=== PATIENT | female | born 1970 | race Caucasian/White ===

== ENCOUNTER 2016-04-23 10:15 | Outpatient (CLI) | payer OTHER ==
--- NOTE | 2016-04-23 13:48 | OP Clinic Progress Note ---
REFERRING PHYSICIAN: Dr. Jaime Bustos Dear Dr. Bustos: REASON FOR VISIT: I had the pleasure of seeing Meme Ayers in follow up. As you know, I am treating her for seropositive rheumatoid arthritis. She also has a positive SSA antibody. She has noted some improvement on Plaquenil. When she missed it due to gastroenteritis, she felt worse. On today's visit, she complains of pain in her hips and she points to the SI joints and pain in her knees, worse with walking. She has not managed to lose any weight. She is requesting phentermine. I gave her reference to a diet which her and her boyfriend are planning to start. Morning stiffness remains less than 30 minutes. She does complain of some swelling at the ankles. PAST MEDICAL HISTORY: 1. Obesity. 2. Hypertension. 3. Hypothyroidism. 4. Two C-sections. 5. Hysterectomy. 6. Breast reduction. SOCIAL HISTORY AND FAMILY HISTORY: Social history and family history are unchanged. REVIEW OF SYSTEMS: No fevers, chills, sweats, chest pain, shortness of breath, cough, or wheezing. PHYSICAL EXAMINATION: VITAL SIGNS: BP: 148/90, R: 18, heart rate 80, T: 97.5. HEENT: Grossly unremarkable. LUNGS: Clear. HEART: Regular rhythm. ABDOMEN: Soft. VASCULAR: No edema or cyanosis. PERIPHERAL JOINTS: No synovitis at the DIPs, PIPs, MCPs, wrists, elbows, or shoulders. The knees are difficult to examine due to the patient's obesity. IMPRESSION: 1. Seropositive rheumatoid arthritis, seems to be responding. I will recheck a CRP and a sedimentation rate today. If she fails Plaquenil, we will contemplate methotrexate. 2. Obesity. We again discussed the need for weight loss and its association with chronic back pain, osteoarthritis, and reducing cardiovascular risks. I told her I will not prescribe phentermine. Thank you very much. Best regards, cc: Dr. Jaime JOHNSON
== END 2016-04-23 10:16 ==
LOC: RHEU 10:15
PROVIDERS: ATTEND Internal Medicine
DX: M05.79 Rheumatoid arthritis with rheumatoid factor of multiple sites without organ or systems involvement (principal)
CPT/HCPCS: 36415; 84443; 85651; 86140; 99213

== ENCOUNTER 2016-07-23 11:30 | Outpatient (CLI) | payer OTHER ==
--- NOTE | 2016-07-26 14:45 | OP Clinic Progress Note ---
REASON FOR VISIT: Meme Ayers returns for follow up of seropositive rheumatoid arthritis and a positive SSA-antibody. She is feeling well on Plaquenil with no significant joint swelling, warmth, tenderness, or pain. Most of her pain is in the hips and knees. She has been doing some exercise and feels somewhat better. She has lost around 10 pounds. PAST MEDICAL HISTORY: 1. Obesity. 2. Hypertension. 3. Hypothyroidism. 4. Two C-sections. 5. Hysterectomy. 6. Breast reduction. 7. Rheumatoid arthritis. PRESENT MEDICATIONS: 1. Plaquenil 200 mg twice a day. 2. Levothyroxine. REVIEW OF SYSTEMS: No fevers, chills, sweats, chest pain, shortness of breath, cough, or wheezing. PHYSICAL EXAMINATION: GENERAL APPEARANCE: On exam, she looks well. VITAL SIGNS: WT: 370 pounds. HT: 5 feet 4 inches. BP: 147/90, heart rate 76, R: 12, T: 97. HEENT: Grossly unremarkable. LUNGS: Clear. HEART: Regular rhythm. ABDOMEN: Soft. VASCULAR: No edema or cyanosis. PERIPHERAL JOINTS: No synovitis at the DIPs, PIPs, MCPs, wrists, elbows, shoulders, hips, knees, ankles, and feet. IMPRESSION: Seropositive rheumatoid arthritis, doing well on Plaquenil. PLAN: I gave her 6 months of refills. I will see her back in 6 months. No other changes at this time. Thank you very much. cc: Dr. Jaime JOHNSON
== END 2016-07-23 11:32 ==
LOC: RHEU 11:30
PROVIDERS: ATTEND Internal Medicine
DX: M05.79 Rheumatoid arthritis with rheumatoid factor of multiple sites without organ or systems involvement (principal)
CPT/HCPCS: 99213

== ENCOUNTER 2017-01-28 07:51 | Outpatient (CLI) | payer OTHER ==
[2017-01-28 08:15] LABS: BASOPHILS % 0.4 (0.0-1.5); EOSINOPHILS % 2.2 % (0.0-6.8); MEAN CORPUSCULAR HEMOGLOBIN 30.3 pg (28.0-34.0); MEAN CORPUSCULAR VOLUME 92.8 fl (80.0-100.0); MONOCYTES % 4.3 % (0.0-11.0); NEUTROPHILS # 4.7 # k/uL (1.4-7.7)
[2017-01-28 08:48] LABS: eGFR (African) > 60; eGFR (Non-African) > 60
[2017-01-28 17:51] LABS: T3 TOTAL 108.2 ng/dL (80.0-200.0)
== END 2017-01-28 07:52 ==
LOC: LAB 07:51
PROVIDERS: ATTEND Physician Assistant
DX: R53.83 Other fatigue (principal); Z00.00 Encounter for general adult medical examination without abnormal findings; E03.9 Hypothyroidism, unspecified
CPT/HCPCS: 36415; 80053; 80061; 84439; 84443; 84480; 85025

== ENCOUNTER 2017-02-01 13:39 | Outpatient (CLI) | payer OTHER ==
--- NOTE | 2017-02-01 15:26 | Diagnostic Imaging Report ---
KRISTAL HINOJOSA [facility] [address] [facility] [address] [address] Report Submission Date: Feb 01, 2017 2:33:20 PM GLOVE OPERATOR Patient Study Name: LIAT LEA Date: Feb 01, 2017 2:05:45 PM GLOVE OPERATOR Modality Type: US Gender: F Description: US THYROID SOFT TISS HEAD/NCK : 68 Institution: [facility] Physician: KRISTAL HINOJOSA Examination: Ultrasound thyroid History: Thyroid swelling. Comparison exams: None available Findings: Right thyroid lobe measures 5.0 x 1.8 x 2.0 cm. Left thyroid lobe measures 5.1 x 1.6 x 2.0 cm. Normal echogenicity bilaterally. Focal echogenic structure near the inferior margin of the right thyroid gland measuring 6 mm maximally. Impression: Echogenic nodule near the inferior margin of the right thyroid lobe - uncertain if this is intra thyroid or external to the thyroid gland. Correlate with any laboratory values. Follow as clinically warranted. Electronically signed on Feb 01, 2017 2:33:20 PM GLOVE OPERATOR by: Deepak JOHNSON
== END 2017-02-01 13:40 ==
LOC: RAD 13:39
PROVIDERS: ATTEND Physician Assistant
DX: E07.9 Disorder of thyroid, unspecified (principal)
CPT/HCPCS: 76536

== ENCOUNTER 2017-02-02 10:16 | Outpatient (CLI) | payer OTHER ==
--- NOTE | 2017-02-03 12:05 | OP Clinic Progress Note ---
REASON FOR VISIT: Meme is a 46-year-old female with a variety of head and neck issues. One is a thyroid ultrasound that had at maximum a 4 mm but generally a less sized nodule in her thyroid. In discussing this, it is not at all suspicious. There is no suggestion in the report and my general recommendation regarding a biopsy would tend not to do that at this point. It might be left alone. The patient does have some general concern in this regard. My recommendation as far as the nodule in the thyroid is to have a repeat ultrasound in a year. Also note that the thyroid generally is of a normal size. It is not goitrous and I do not believe that the thyroid itself contributes in any way to her airway restriction. Regarding airway restriction, she feels some shortness of breath at different times. She is overall fairly self-aware. Some of her throat symptoms she recognizes as reflux and simply taking 2 Tums recently calms significantly some of her throat symptoms. She describes tightness and a fullness in her throat. By palpation, the thyroid is not tender. There is no gross palpable mass or nodule that is abnormal in her neck, albeit some reduced confidence limits in being able to feel structures in her neck secondary to her obesity. I used a flexible fiberoptic laryngoscope. She does have some turbinate hypertrophy and rhinitis that contributes to some degree of her airway restriction. The tongue base is somewhat posterior. The vocal cords and the rest of the larynx is entirely normal. Vocal cords abduct and adduct well. There are no masses. I would note that Meme was at least 3 times tearful during the conversation, just at on the onset mentioning the of her father in November and her brother in December. She also noted some of her symptoms of swelling under the neck and shortness of breath and fullness surrounding the times of the deaths in her family. She notes that she has had anxiety in the past and she has taken a medication. She is not quite sure which one that is. PLAN: I offered her a trial on a medication that may or may not ameliorate some of her anxiety or symptoms. I offered a low dose of Elavil at 10 mg a day p.r.n. anxiety. I pointed out with this medication, she should pay attention and at her next meeting with Dr. Licea, make a comment as to whether the Elavil at this dose was somewhat helpful, not at all helpful, or somewhat bothersome, but at least be aware in this regard. Again, regarding the small nodule in the thyroid that the maximum size would be just barely 6 mm and doing an ultrasound in a year. Meme notes that she is well aware of her being overweight and that she is also aware that she eats for anxiety reduction. She is trying to make some changes in this regard. I feel that overall even though she has a difficult time acting on some of the issues that are deleterious to her, she is fairly self-aware. Meme may return at any time on an p.r.n. basis, but she will otherwise return to the care of Dr. Licea. cc: Dr. Lissett JOHNSON
== END 2017-02-02 10:17 ==
LOC: ENT 10:16
PROVIDERS: ATTEND Otolaryngology
DX: E04.1 Nontoxic single thyroid nodule (principal); F41.9 Anxiety disorder, unspecified
CPT/HCPCS: 31575; 99213

== ENCOUNTER 2017-08-19 08:00 | Outpatient (CLI) | payer OTHER ==
--- NOTE | 2017-08-25 07:59 | OP Clinic Progress Note ---
REASON FOR VISIT: Meme Ayers returns for follow up on her seropositive rheumatoid arthritis and positive SSA antibody. She is not doing well. She is having pain and throbbing in her arms. She is having more difficulty walking. She has pain in her feet and her left knee. Otherwise, she has not noted any new deformities. Obesity, she has not managed to lose any more significant weight. Hypothyroidism, she is back on her levothyroxine. She has not had her TSH checked in quite a while. Anxiety disorder, she needs to contact her primary physician. PAST MEDICAL AND SURGICAL HISTORY: 1. Hypertension. 2. Hysterectomy. 3. Breast reduction. PRESENT MEDICATIONS: 1. Plaquenil 200 mg twice a day. 2. Meloxicam 15 mg daily. 3. Levothyroxine 25 mcg daily. 4. Amitriptyline. REVIEW OF SYSTEMS: No fevers, chills, or sweats. Continued fatigue. No chest pain, shortness of breath, cough or wheezing, nausea or vomiting. PHYSICAL EXAMINATION: VITAL SIGNS: Weight: 374 pounds. Height: 5 feet 4 inches. T: 96.2, R: 20 , heart rate 76, BP: 140/80. HEENT: Unremarkable. LUNGS: Clear with no crackles or wheezing. HEART: Regular rate and rhythm. ABDOMEN: Soft. VASCULAR: No edema or cyanosis. JOINTS: DIPs, PIPs, MCPs, and wrists are unremarkable. Elbows and shoulders are unremarkable. Both knees are tender. I cannot ascertain whether she has an effusion. Both ankles are tender. MTPs are unremarkable. IMPRESSION: Seropositive rheumatoid arthritis, doing poorly. PLAN: 1. I am stopping her meloxicam. 2. I am putting her on prednisone 5 mg twice a day for the next 4 weeks. We will re-evaluate her at that time. 3. In the meantime, we will update a TSH, CBC, CMP, sedimentation rate, CRP and we will consider stopping Plaquenil and instituting methotrexate if appropriate. Thank you very much. cc: Dr. Jaime JOHNSON
== END 2017-08-19 09:07 ==
LOC: RHEU 08:00
PROVIDERS: ATTEND Internal Medicine
DX: M05.9 Rheumatoid arthritis with rheumatoid factor, unspecified (principal)
CPT/HCPCS: 99213; 99214

== ENCOUNTER 2017-08-25 16:02 | Outpatient (CLI) | payer OTHER ==
[2017-08-25 16:56] LABS: MEAN CORPUSCULAR HEMOGLOBIN 30.7 pg (28.0-34.0); MEAN CORPUSCULAR VOLUME 90.8 fl (80.0-100.0)
[2017-08-25 16:57] LABS: BASOPHILS % 0.5 (0.0-1.5); EOSINOPHILS % 3.9 % (0.0-6.8); MONOCYTES % 4.3 % (0.0-11.0); NEUTROPHILS # 4.8 # k/uL (1.4-7.7)
[2017-08-25 17:06] LABS: eGFR (African) > 60; eGFR (Non-African) > 60
== END 2017-08-25 16:15 ==
LOC: LAB 16:02
PROVIDERS: ATTEND Internal Medicine
DX: M05.79 Rheumatoid arthritis with rheumatoid factor of multiple sites without organ or systems involvement (principal); E78.5 Hyperlipidemia, unspecified
CPT/HCPCS: 36415; 80053; 84443; 85025; 85651; 86140

== ENCOUNTER 2017-09-23 08:32 | Outpatient (CLI) | payer OTHER ==
--- NOTE | 2017-09-26 13:17 | OP Clinic Progress Note ---
REASON FOR VISIT: Meme Ayers returns for follow up of seropositive rheumatoid arthritis and a positive SSA antibody. At her last visit, I added prednisone 5 mg to her regimen and it made a huge difference. She has been feeling well with no joint pain. No stiffness. Maybe a little bit of residual pain in her feet. She has lost some weight. Other issues have been hypothyroidism and anxiety disorder. PAST MEDICAL HISTORY: 1. Hypertension. 2. Hysterectomy. 3. Breast reduction. 4. Hypothyroidism. PRESENT MEDICATIONS: 1. Plaquenil 200 mg twice a day. 2. Prednisone 5 mg twice a day. 3. Levothyroxine 25 mcg daily. 4. Amitriptyline. REVIEW OF SYSTEMS: No fevers, chills, sweats, chest pain, shortness of breath, cough, or wheezing. PHYSICAL EXAMINATION: VITAL SIGNS: Height: 5 feet 4 inches. Weight: 360 pounds, down from 374. T: 96.9, R: 20, heart rate 80, BP: 130/80. HEENT: Sclerae are anicteric. Conjunctivae are pink. No stomatitis or glossitis. LUNGS: Clear with no crackles or wheezing. HEART: Regular rate and rhythm. ABDOMEN: Soft. VASCULAR: No edema or cyanosis. PERIPHERAL JOINTS: DIPs, PIPs, MCPs, wrists, elbows, shoulders, hips, knees, ankles, and feet are nontender. The other thing she tells me is that her arms no longer fall asleep at night. LABORATORY: Her last lab reflected a sedimentation rate of 53. CRP was 0.55. TSH was 3.620. IMPRESSION: Seropositive rheumatoid arthritis, improved. PLAN: 1. Continue prednisone 5 mg twice a day. 2. Continue Plaquenil 200 mg twice a day. 3. I am instituting Arava 20 mg daily. I warned her about the possibility of diarrhea on this. 4. She is going to get labs done in 3 weeks. 5. I will see her back in 4 weeks. Thank you very much. cc: Dr. Lissett JOHNSON
== END 2017-09-23 12:35 ==
LOC: RHEU 08:32
PROVIDERS: ATTEND Internal Medicine
DX: M05.9 Rheumatoid arthritis with rheumatoid factor, unspecified (principal)
CPT/HCPCS: 99213; 99214

== ENCOUNTER 2017-10-20 10:52 | Outpatient (CLI) | payer OTHER ==
[2017-10-20 17:15] LABS: BASOPHILS % 0.5 (0.0-1.5); EOSINOPHILS % 0.5 % (0.0-6.8); MEAN CORPUSCULAR VOLUME 91.4 fl (80.0-100.0); MONOCYTES % 5.1 % (0.0-11.0); NEUTROPHILS # 6.3 # k/uL (1.4-7.7)
[2017-10-20 17:46] LABS: eGFR (African) > 60; eGFR (Non-African) > 60
== END 2017-10-20 10:53 ==
LOC: LAB 10:52
PROVIDERS: ATTEND Internal Medicine
DX: M05.79 Rheumatoid arthritis with rheumatoid factor of multiple sites without organ or systems involvement (principal)
CPT/HCPCS: 36415; 80053; 85025; 85651; 86140

== ENCOUNTER 2017-10-21 09:01 | Outpatient (CLI) | payer OTHER ==
--- NOTE | 2017-10-21 14:32 | OP Clinic Progress Note ---
REASON FOR VISIT: Meme Ayers returns for follow up on her seropositive rheumatoid arthritis and positive SSA antibody. She is feeling better. At her last visit, I instituted Arava 20 mg daily. She has tolerated it well with no nausea or diarrhea. She presently has no joint pain, stiffness, or swelling. She would like to get off the prednisone. She has lost about 10 pounds and would not like to weigh today. PAST MEDICAL HISTORY: 1. Hypertension. 2. Hysterectomy. 3. Breast reduction. 4. Hypothyroidism. 5. Anxiety disorder. PRESENT MEDICATIONS: 1. Plaquenil 200 mg twice a day. 2. Prednisone 5 mg twice a day. 3. Levothyroxine 25 mcg daily. 4. Amitriptyline. 5. Hydrochlorothiazide, dose unknown. 6. Arava 20 mg daily. REVIEW OF SYSTEMS: No fevers, chills, sweats, chest pain, shortness of breath, cough, wheezing, nausea, vomiting, or diarrhea. No rashes, numbness, or tingling of extremities. PHYSICAL EXAMINATION: VITAL SIGNS: Height: 5 feet 4 inches. T: 96.3, R: 20, Heart rate 80, BP: 147/91. HEENT: Sclerae are anicteric. Conjunctivae are pink. No stomatitis or glossitis. LUNGS: Clear. HEART: Regular rate and rhythm. ABDOMEN: Soft. VASCULAR: No edema or cyanosis. JOINTS: The DIPs, PIPs, MCPs, wrists, elbows, shoulders, hips, knees, ankles, and feet with no synovitis. LABORATORY: Labs from October 20, sedimentation rate was 47. Potassium was 3. Creatinine was normal. CRP was 0.39. TSH was 3.62 on August 25. IMPRESSION: 1. Seropositive rheumatoid arthritis, improved. 2. High risk drug. No evidence of toxicity. PLAN: 1. We are going to wean her off the prednisone by taking 5 mg daily for 2 weeks and then 2.5 mg daily for 2 weeks and then stop. 2. We discussed further weight loss modalities. 3. We will check her labs prior to her next visit in 3 months. cc: Dr. Lissett JOHNSON
== END 2017-10-21 09:02 ==
LOC: RHEU 09:01
PROVIDERS: ATTEND Internal Medicine
DX: M05.9 Rheumatoid arthritis with rheumatoid factor, unspecified (principal); Z79.899 Other long term (current) drug therapy; Z51.81 Encounter for therapeutic drug level monitoring
CPT/HCPCS: 99213; 99214

== ENCOUNTER 2018-01-05 16:34 | Outpatient (CLI) | payer OTHER ==
[2018-01-05 16:55] LABS: BASOPHILS % 0.3 (0.0-1.5); MEAN CORPUSCULAR HEMOGLOBIN 30.7 pg (28.0-34.0); MONOCYTES % 6.1 % (0.0-11.0)
[2018-01-05 16:56] LABS: NEUTROPHILS # 4.1 # k/uL (1.4-7.7)
[2018-01-05 17:12] LABS: eGFR (Non-African) > 60
--- NOTE | 2018-01-05 17:27 | Diagnostic Imaging Report ---
DEANNA NEIL [facility] [address] [facility] [address] [place], [place]. [address] Report Submission Date: Jan 05, 2018 5:07:00 PM CDT Patient Study Name: LIAT LEA Date: Jan 05, 2018 4:43:12 PM CDT Modality Type: DX Gender: F Description: CHEST : 68 Institution: [facility] Physician: DEANNA NEIL Examination: PA and lateral chest. History: Evaluate lung rodney. 47/F CXR - SOB x1 WK, AND COUGH PT DENIES CHANCES OF (Hx) Findings: PA and lateral views of the chest demonstrates a normal cardiac and mediastinal silhouette. No focal infiltrate. No blunting of the costophrenic margins. Osseous structures are appropriate for age. Impression: No acute pulmonary process. Electronically signed on Jan 05, 2018 5:07:00 PM CDT by: Deepak JOHNSON
== END 2018-01-05 16:35 ==
LOC: LAB 16:34
PROVIDERS: ATTEND Family Medicine
DX: R06.09 Other forms of dyspnea (principal)
CPT/HCPCS: 36415; 71046; 80053; 83880; 85025

== ENCOUNTER 2018-02-24 07:46 | Outpatient (CLI) | payer OTHER ==
--- NOTE | 2018-03-08 09:17 | OP Clinic Progress Note ---
REASON FOR VISIT: Meme Ayers returns for follow up of seropositive rheumatoid arthritis. She is doing well. No joint pain, stiffness, or swelling. Medical history and medications are unchanged, except she stopped Arava. She had developed shortness of breath and a cough. She is presently doing quite well on Plaquenil 200 mg twice a day and prednisone 5 mg daily. PHYSICAL EXAMINATION: VITAL SIGNS: BP: 170/80, P: 79, R: 20, T: 97.3. HEENT: Grossly unremarkable. LUNGS: Clear. HEART: Regular rate and rhythm. PERIPHERAL JOINTS: No synovitis in the upper or lower extremities. IMPRESSION: 1. Rheumatoid arthritis, seropositive. Active and stable. 2. Intolerance to Arava due to shortness of breath. 3. Continue as is and I will see her back in 3 months. cc: Dr. Lissett JOHNSON
== END 2018-02-24 08:10 ==
LOC: RHEU 07:46
PROVIDERS: ATTEND Internal Medicine
DX: M05.89 Other rheumatoid arthritis with rheumatoid factor of multiple sites (principal)
CPT/HCPCS: 99212

== ENCOUNTER 2018-07-03 09:03 | Outpatient (CLI) | payer OTHER ==
[2018-07-03 13:33] LABS: EOSINOPHILS % 1.3 % (0.0-6.8); MEAN CORPUSCULAR HEMOGLOBIN 30.8 pg (28.0-34.0); MONOCYTES % 5.1 % (0.0-11.0)
[2018-07-03 13:34] LABS: BASOPHILS % 0.5 % (0.0-1.5); NEUTROPHILS # 7.5 # k/uL (1.4-7.7)
[2018-07-03 14:07] LABS: eGFR (Non-African) > 60
== END 2018-07-03 09:04 ==
LOC: LAB 09:03
PROVIDERS: ATTEND Internal Medicine
DX: R70.0 Elevated erythrocyte sedimentation rate (principal); R79.82 Elevated C-reactive protein (CRP); R94.6 Abnormal results of thyroid function studies
CPT/HCPCS: 36415; 80053; 84443; 85025; 85651; 86140

== ENCOUNTER 2018-07-24 07:32 | Outpatient (CLI) | payer OTHER ==
[2018-07-24 07:54] LABS: BASOPHILS % 0.4 % (0.0-1.5); EOSINOPHILS % 1.6 % (0.0-6.8); MEAN CORPUSCULAR HEMOGLOBIN 30.9 pg (28.0-34.0); MONOCYTES % 5.4 % (0.0-11.0); NEUTROPHILS # 4.2 # k/uL (1.4-7.7)
[2018-07-24 08:07] LABS: eGFR (Non-African) > 60
== END 2018-07-24 07:33 ==
LOC: LAB 07:32
PROVIDERS: ATTEND Internal Medicine
DX: R79.9 Abnormal finding of blood chemistry, unspecified (principal)
CPT/HCPCS: 36415; 80053; 85025; 85651